=== PATIENT | male | born 1995 | race Two or more races ===

== ENCOUNTER 2023-06-30 22:08 | Emergency (ER) | payer BC, OTHER ==
[~2023-06-30] VITALS: Ht 172.7 cm; Wt 106.8 kg
[2023-07-01] MEDS ORDERED: FLUORESCEIN SOD OPTH TEST STRIP RIGHTEYE ONE (02:45)
[2023-07-01] MEDS ORDERED: TETRACAINE HCL 0.5% OPTH(EYE) SOLN 4ML RIGHTEYE ONE (02:45)
[2023-07-01 02:50] VITALS: BP 140/80; PULSE 78; RESP 16; TEMP 97.6; O2SAT 98
[2023-07-01] MEDS ORDERED: ERY05OO OP (03:01)
== END 2023-07-01 07:24 | disposition home or self-care (01) ==
LOC: ER 22:08
DX: H10.9 Unspecified conjunctivitis (principal)